=== PATIENT | female | born 2005 | race Hispanic/Latino ===

== ENCOUNTER 2024-01-20 16:53 | Emergency (ER) | payer MEDICAID, OTHER ==
[~2024-01-20] VITALS: Ht 160 cm; Wt 61.2 kg
[2024-01-20 17:33] LABS: ADD UA MICROSCOPIC YES; APPEARANCE,URINE CLEAR (CLEAR); BILIRUBIN,URINE NEGATIVE (NEGATIVE); COLOR,URINE LIGHT-YELLOW (YELLOW); GLUCOSE, URINE (UA) NEGATIVE (NEGATIVE); KETONES,URINE NEGATIVE (NEGATIVE); LEUKOCYTE ESTERASE ,URINE NEGATIVE Leu/uL (NEGATIVE); NITRATE,URINE NEGATIVE (NEGATIVE); OCCULT BLOOD,URINE SMALL (NEGATIVE); PH,URINE 5.5 (5.0-8.0); PROTEIN,URINE NEGATIVE (NEGATIVE); UROBILINOGEN,URINE 0.2 mg/dL (0.2-1.0)
[2024-01-20 17:35] LABS: BACTERIA,URINE RARE /HPF (None Seen); HCG,QUALITATIVE URINE NEGATIVE (NEGATIVE); MUCUS,URINE FEW LPF (None Seen); SQUAMOUS EPITHELIAL CELL,UR FEW /HPF (0-2)
[2024-01-20] MEDS: CEFTRIAXONE 1G VIAL IM ONE (18:51)
[2024-01-20] MEDS: AZITHROMYCIN 250 MG TABLET PO ONE (18:51)
[2024-01-20 19:12] VITALS: BP 119/79; PULSE 67; RESP 20; O2SAT 99
== END 2024-01-20 19:15 | disposition home or self-care (01) ==
LOC: EDH 16:53
DX: Z20.2 Contact with and (suspected) exposure to infections with a predominantly sexual mode of transmission (principal)
CPT/HCPCS: 99283; 87491; 87591; 81001; 81025; 96372; J0696